=== PATIENT | male | born 1960 | race Caucasian/White ===

== ENCOUNTER → 2022-10-10 | Outpatient (CLI) | payer BC, OTHER ==
[~2022-10-10] MED LIST: ATORVASTATIN CA20 MG PO; HYDCHL50 PO; POTA20PAC PO
== END ==
LOC: PLD 10:38 → LAB SHORT 10:38
DX: L82.0 Inflamed seborrheic keratosis (principal)
CPT/HCPCS: 88305

== ENCOUNTER → 2022-12-06 | Outpatient (CLI) | payer BC, OTHER | LOC: PLD 12:20 → LAB SHORT 12:20 | DX: D48.5 Neoplasm of uncertain behavior of skin (principal) | CPT/HCPCS: 88305 ==

== ENCOUNTER 2024-12-29 07:55 | Day surgery (SDC) | payer BC ==
[~2024-12-29] VITALS: Ht 180.3 cm; Wt 91.1 kg
[2024-12-29] VITALS (16 sets, daily range): BP systolic 99–140; BP diastolic 63–88
[~2024-12-29 07:55] MED LIST changes: +Lactated Ringer's 1,000 ML IV SCH
[2024-12-29] MEDS ORDERED: propofoL 40 ML IV ONE (09:13)
--- NOTE | 2024-12-29 10:02 | NUR ---
12/29/24 Sandro Junior CONFIRMED AND REVIEWED H&P, MEDCICATIONS, ALLERGIES, MEDICAL HISTORY, RESPIRATORY HISTORY, VITAL SIGNS, 3-LEAD EKG, CONSENTS, AND PHYSICIAN ORDERS. PATIENT CONFIRMS NPO STATUS AND AGREES WITH SCHEDULED PROCEDURE. MONITOR INTACT WITH CONTINUOUS PULSE OXIMETRY, CAPNOGRAPHY, 3-LEAD EKG, INTERMITTENT BP. SUPPLEMENTAL O2 TO BE TITRATED THROUGHOUT PROCEDURE TO MAINTAIN O2 SATURATION ABOVE 90%. PATIENT DETERMINED TO BE ASA APPROPRIATE FOR PROPOFOL SEDATION PRIOR TO START OF PROCEDURE BY DR. CLIFTON.
--- NOTE | 2024-12-29 10:55 | NUR ---
DISCHARGE NOTE PT A&OX4, BREATHING RA, VSS, NO COMPLAINTS, TOERATING PO FLUIDS. Patient up to Ambulate independently. Gait steady. Discharge instructions reviewed with patient. Patient verbalizes understanding. Copy given to patient to take home. Discharged via wheelchair to private car for ride home.
== END 2024-12-29 10:55 | disposition home or self-care (01) ==
LOC: ORSCMMR 07:55 → ORD 09:00 → ORSCMMR 09:00
PROVIDERS: Internal Medicine Gastroenterology
PROC: 0DBN8ZX Excision of Sigmoid Colon, Via Natural or Artificial Opening Endoscopic, Diagnostic (ICD-10-PCS; principal; 2024-12-29 09:00)
DX: K62.5 Hemorrhage of anus and rectum (principal); R19.5 Other fecal abnormalities; K63.5 Polyp of colon; Z87.11 Personal history of peptic ulcer disease; Z86.0100 Personal history of colon polyps, unspecified; E78.00 Pure hypercholesterolemia, unspecified; I45.6 Pre-excitation syndrome; H81.09 Meniere's disease, unspecified ear; K64.8 Other hemorrhoids; Z79.899 Other long term (current) drug therapy
CPT/HCPCS: 88305; J2704; J7120